=== PATIENT | male | born 2000 | race Caucasian/White ===

== ENCOUNTER 2019-12-13 08:52 | Emergency (ER) | payer OTHER, SELFPAY ==
[2019-12-13 09:02] VITALS: BP 128/70; PULSE 82; RESP 12; TEMP 36.6; O2SAT 97
--- NOTE | 2019-12-13 09:03 | DI.RAD.S_ITS ---
PROCEDURE: XR ANKLE LT MIN 3V INDICATIONS: injury sunday TECHNIQUE: Pre-views of the ankle were acquired. COMPARISON: None. FINDINGS: Bones: No acute fracture or dislocation is identified involving the osseous structures of the left midfoot or hindfoot. The ankle mortise is normally aligned. No suspicious osseous lesions are identified. No significant degenerative changes are present. Soft tissues: No significant tibiotalar joint effusion is appreciated. Otherwise, the overlying soft tissues are unremarkable. IMPRESSION: No acute osseous abnormality of the left ankle. Dictated by: Jonathan Yang M.D. on 12/13/2019 at 8:43 Approved by: Jonathan Yang M.D. on 12/13/2019 at 8:46
--- NOTE | 2019-12-13 09:20 | ED.LOWEXIN ---
HPI - Extremity Injury (Lower) General Chief Complaint: Extremity Injury, Lower Stated Complaint: lt ankle twisted at work 12/10 Time Seen by Provider: 12/13/19 09:03 Source: patient Mode of arrival: Ambulatory Limitations: no limitations History of Present Illness HPI Narrative: Patient is a 19-year-old male who presents with left ankle pain and injury ongoing for the last 3 days. 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 He has been able to walk on it but it is painful. No numbness or tingling. complaint: ankle injury Review of Systems Review of Systems Narrative: GENERAL: Denies chills,fever HEENT: Denies throat pain RESPIRATORY: Denies dyspnea, cough, wheezing CARDIOVASCULAR: Denies chest pain, palpitations GASTROINTESTINAL: Denies nausea, vomiting MUSCULOSKELETAL: See HPI SKIN: No rash, no laceration, no pruritus NEUROLOGIC: Denies weakness, dizziness, headache, numbness 8 point review of systems is negative except for those stated above and HPI Patient History Medical History Patient denies medical problems (Acute) Social History Smoking Status: Never smoker Smoking Status: Never smoker Substance Use Type: does not use Exam Initial Vital Signs Initial Vital Signs: Vital Signs Temperature 97.9 F 12/13/19 09:02 Pulse Rate 82 12/13/19 09:02 Respiratory Rate 12 12/13/19 09:02 Blood Pressure 128/70 12/13/19 09:02 Pulse Oximetry 97 12/13/19 09:02 GENERAL: Well-appearing, well-nourished and in no acute distress. CARDIOVASCULAR: peripheral pulses in tact, cap refill <2 sec RESPIRATORY: No respiratory distress, speaks in full sentences without difficulty EXTREMITIES: Normal range of motion, no clubbing or edema. Neurovascularly intact Left ankle minimal swelling able to flex and extend at ankle. Painful on eversion and inversion distal pedal pulse intact. Achilles intact NEUROLOGICAL: Cranial nerves II through XII grossly intact. Normal gait and speech. SKIN: Warm, dry, no petechiae, no rashes or lesions. Course Orders Ordered: ED Orders 12/13/19 09:03 XR ankle LT min 3V Stat Vital Signs Vital signs: Vital Signs - 8 hr 12/13/19 09:02 Temperature 97.9 F Pulse Rate 82 Respiratory Rate 12 Blood Pressure 128/70 Pulse Oximetry 97 MDM - Extremity Injury (Lower) Imaging Data left ankle: Radiologist's Impression: PROCEDURE: XR ANKLE LT MIN 3V INDICATIONS: injury sunday TECHNIQUE: Pre-views of the ankle were acquired. COMPARISON: None. FINDINGS: Bones: No acute fracture or dislocation is identified involving the osseous structures of the left midfoot or hindfoot. The ankle mortise is normally aligned. No suspicious osseous lesions are identified. No significant degenerative changes are present. Soft tissues: No significant tibiotalar joint effusion is appreciated. Otherwise, the overlying soft tissues are unremarkable. IMPRESSION: No acute osseous abnormality of the left ankle. Dictated by: Jonathan Yang M.D. on 12/13/2019 at 8:43 Discharge Plan Departure Patient Disposition: Home Clinical Impression: Ankle sprain and strain Discharge Date/Time: 12/13/19 09:53 Instructions: DI for Ankle Sprain Activity Restrictions/Additional Instructions: *You have been diagnosed with left ankle sprain *What to do: Increase activity as tolerated may require an ankle brace well active. Elevate while at home as often as possible ice 20-30 minutes at a time. *Continue to take medications as directed Ibuprofen 800 mg every 8 hours if needed for [id number] pain *Follow up with your primary care provider in 2-3 days *Return to ER if you should have inability to walk, increasing numbness or any new, worsening or concerning symptoms Referrals: [facility] [Outside]
== END 2019-12-13 09:53 | disposition home or self-care (01) ==
PROVIDERS: Emergency Provider Emergency Medicine
DX: S93.402A Sprain of unspecified ligament of left ankle, initial encounter (principal); S96.912A Strain of unspecified muscle and tendon at ankle and foot level, left foot, initial encounter; X50.9XXA Other and unspecified overexertion or strenuous movements or postures, initial encounter; Y99.0 Civilian activity done for income or pay
CPT/HCPCS: 73610; 99283